=== PATIENT | female | born 1990 | race Native Hawaiian/Other Pacific Islander ===

== ENCOUNTER 2018-10-16 12:15 | Inpatient (IN) | payer BC ==
--- NOTE | 2018-10-16 13:54 | ED PDOC ---
HPI: Psych/Substance Abuse Time Seen by Provider: 10/16/18 12:28 Chief Complaint (Nursing): Psychiatric Evaluation Chief Complaint (Provider): Depression History Per: Patient History/Exam Limitations: no limitations Additional Complaint(s): 28yo female, with history of hypertension, anxiety, depression, (not on medicati ons), comes to ER for evaluation due to depression. patient states she has had depression for more than 4 years; she was previously seen in an urgent care, and was prescribed medications including xanax and zoloft which she took for 2 months and then stopped as she felt llike she did not need it anymore. Patient states within the past year, she has been increasingly depressed and over the past month has been taking xanax more frequently. Patient states she takes one xanax prior to bed daily. No complaints of suicidal or homicidal ideation, no hallucinations. Patient denies any medical complaints. Patient's friend pulled me aside and states the patient is downplaying her symptoms and has been "on a downward spiral" for the past year; states the patient had a breakdown at work, was crying at her desk infront of all her coworkers. She states the patient "is risking her job" and "has hit rock bottom." She does not feel the patient is suicidal but states the patient cries herself to sleep each night. Past Medical History Reviewed: Historical Data, Nursing Documentation, Vital Signs Vital Signs: Last Vital Signs Temp 98.7 F 10/16/18 12:18 Pulse 80 10/16/18 12:18 Resp 19 10/16/18 12:18 BP 156/95 H 10/16/18 12:18 Pulse Ox 98 10/16/18 12:18 - Medical History PMH: Depression, HTN - Surgical History Surgical History: No Surg Hx - Family History Family History: States: No Known Family Hx - Home Medications Home Medications: Ambulatory Orders Medication Instructions Recorded Alprazolam [Xanax] 0.5 mg PO DAILY PRN 10/16/18 Multivitamin [Multi-Vitamin Daily] 1 tab PO DAILY 10/16/18 - Allergies Allergies/Adverse Reactions: Allergies Allergy/AdvReac Type Severity Reaction Status Date / Time No Known Allergies Allergy Verified 10/16/18 12:18 Review of Systems ROS Statement: Except As Marked, All Systems Reviewed And Found Negative Psych: Positive for: Depression. Negative for: Suicidal ideation Physical Exam - Reviewed Nursing Documentation Reviewed: Yes Vital Signs Reviewed: Yes - Physical Exam Appears: Positive for: Non-toxic Head Exam: Positive for: ATRAUMATIC, NORMAL INSPECTION, NORMOCEPHALIC Skin: Positive for: Normal Color Eye Exam: Positive for: EOMI, PERRL Neck: Positive for: Supple Cardiovascular/Chest: Positive for: Regular Rate, Rhythm. Negative for: Tachycardia Respiratory: Positive for: Normal Breath Sounds. Negative for: Respiratory Distress Neurological/Psych: Positive for: Awake, Alert, Normal Tone, Oriented (x 3), Mood/Affect (calm and cooperative, good insight) - Laboratory Results Result Diagrams: 10/16/18 15:10 10/16/18 15:10 - ECG O2 Sat by Pulse Oximetry: 98 (RA) Pulse Ox Interpretation: Normal Medical Decision Making Medical Decision Makinyo female with complaints of depression Plan: -- Crisis evaluation 1427 Patient seen by crisis team, and per Dr. Ruffin, patient to be admitted due to depression. Labs ordered for medical clearance. 1631 UDip reviewed, patient with moderate blood, trace leukocytes, and no nitrates. Patient currently on her menstrual period; no complaints of dysuria, frequency, urgency or suprapubic pain. Labs reviewed, no clinically significant abnormalities noted. Patient medically cleared for psychiatric admission. Scribe Attestation: Documented by Rose Marie Trujillo acting as a scribe for DAKOTA Donald. Provider Scribe Attestation: All medical record entries made by the Scribe were at my direction and personally dictated by me. I have reviewed the chart and agree that the record accurately reflects my personal performance of the history, physical exam, medical decision making, and the department course for this patient. I have also personally directed, reviewed, and agree with the discharge instructions and disposition. Disposition - Clinical Impression Clinical Impression: Depression - Patient ED Disposition Is Patient to be Admitted: Yes Discussed With : Arely Ruffin Doctor Will See Patient In The: Hospital - Disposition Disposition: Transfer of Care Disposition Time: 15:52 Condition: FAIR
[2018-10-16 15:17] LABS: BASO # 0.1 K/uL (0.0-0.2); BASO % 0.9 % (0.0-2.0); EOS # 0.1 K/uL (0.0-0.7); EOS % 1.2 % (0.0-4.0); HEMOGLOBIN 15.4 g/dL (12.0-16.0); LYMPH # 2.3 K/uL (1.0-4.3); LYMPH % 23.7 % (20.0-40.0); MEAN CELL VOLUME 93.7 fl (81.0-99.0); MEAN CORPUSCULAR HEMOGLOBIN 31.2 pg (27.0-31.0); MEAN CORPUSCULAR HGB CONC 33.3 g/dL (33.0-37.0); MEAN PLATELET VOLUME 8.7 fl (7.2-11.7); MONO # 0.6 K/uL (0.0-0.8); MONO % 6.3 % (0.0-10.0); NEUT # 6.7 K/uL (1.8-7.0); NEUT % 67.9 % (50.0-75.0); RBC 4.94 Mil/uL (3.80-5.20); RED CELL DISTRIBUTION WIDTH 13.5 % (11.5-14.5); WHITE BLOOD COUNT 9.9 K/uL (4.8-10.8)
[2018-10-16 15:27] LABS: BLOOD UREA NITROGEN 10 mg/dl (7-17); GFR NON-AFRICAN AMERICAN > 60
[2018-10-16 15:37] LABS: BENZODIAZEPINES, UR NEGATIVE (NEGATIVE)
[2018-10-16 15:39] LABS: BARBITURATES, UR NEGATIVE (NEGATIVE); OPIATES, UR NEGATIVE (NEGATIVE); PHENCYCLIDINE, UR NEGATIVE (NEGATIVE)
[2018-10-16] MEDS ORDERED: DiphenhydrAMINE 50 mg/ml Inj IM PRN (18:24)
[2018-10-16] MEDS ORDERED: Alum-Mag Hydrox-Simethicone Susp (30 mL) PO PRN (18:24)
[2018-10-16] MEDS ORDERED: Magnesium Hydroxide Susp 30 ml UD PO PRN (18:24)
--- NOTE | 2018-10-16 18:54 | PCM.BM ---
<GracielaKhushboo - Last Filed: 10/16/18 18:49> Treatment Plan Problems - Problems identified on initial assessmt Anxiety Date Initiated: 10/16/18 Time Initiated: 18:49 Assessment reference: NA Status: Active Feelings of worthlessness Date Initiated: 10/16/18 Time Initiated: 18:50 Assessment reference: NA Status: Active Treatment assets and liabiliti Patient Assests: educated, physically healthy, good support system Patient Liabilities: relationship conflicts, other (depression) - Milieu Protocol Maintain good personal hygiene: daily Encourage regular showers, every shift Remind patient to perform daily oral care, every shift Assist patient to perform ADL's Conduct patient checks and document Observation sheet: Q15 minutes Maintain personal safety: every shift Educate patient to report safety concerns to staff, every shift Monitor environment for contraband/sharps Medication safety: Monitor for expected outcome, potential side effects: every shift, Assess barriers to learning: every shift, Assess readiness for medication education: every shift <Reagan Elena - Last Filed: 10/18/18 10:50> Family Contact Family involvement: Family/SO is involved Family contact: Patient declines to allow family contact at present Family contact name: Pt refused. Family contact comment: Pt reported she does not want her family called because she does not want them to worry. - Goals for Treatment Patient goals for treatment: Pt requested to leave the unit as her missing work is causing her more anxiety than before admission. Pt is agreeable to outpatient referrals for therapy and med management and is motivated to attend. Discharge/Continuing Care - Education Needs Education Needs: Patient Medication, Patient Diagnosis/Disease Process, Patient Coping Skills, Patient Community resources, Patient Aftercare Safety Plan - Discharge Discharge Criteria: Tolerates medication w/o severe side effects, Free of agitation, Normal sleep pattern, Reduction of target symptoms Discharge to:: Home - Treatment Team Participation Patient/Family/SO Statement: 10/18/18 10:50 Pt seen in treatment team on 10/18/18. Pt reported good sleep on the Trazodone, but felt a little groggy today and some fear that she would sleep through her alarms. Trazodone will be lowered to 25mg HS on 10/18/18. Pt reported decreased anxiety/depression and feeling overwhelmed. Pt reported feeling tremendous social support from her job, coworkers and friends. Pt denied SI/HI and AVT hallucinations. Discharged on 10/19 was discussed due to 48 hour notice and no criteria for [facility] screening. Appointments at [facility] discussed as well. Discussed with Family/SO: No Was Patient/Family/SO present at Treatment Team Meeting: Yes <Arely Ruffin - Last Filed: 10/18/18 13:43> - Diagnosis (1) Major depression Status: Acute Interventions: 10/18/18 13:42 start lexapro, CBT (2) Cannabis abuse Status: Acute Interventions: MOTIVATIONAL THERAPY 10/18/18 13:43
[2018-10-17 02:34] VITALS: O2SAT 98
--- NOTE | 2018-10-17 14:34 | PCM.PSYCH ---
Initial Psychiatric Evaluation - Initial Psychiatric Evaluation Legal Status: Capacity Chief Complaint (in patient's own words): I am so overwhelmed I could not function History of Present Illness and Precipitating Events: pt is 28ys old female with previous diagnosis of depression and anxiety, currently not in treatment brought to ER after expressing suicidal ideation pt has been increasingly overwhelmed due to her job, also has been feeling increasingly lonely, pt reported depressed mood , crying episodes,poor sleep with early insomnia, periods of hopelessness and helplessness with passive suicidal ideation feeling her life is worthless without active plan pt denied perceptual disturbances, denied homicidal ideation, reported using cannabis for sleep Current Medications: Active Medications Generic Name Dose Route Start Last Admin Trade Name Freq PRN Reason Stop Dose Admin Acetaminophen 650 mg 10/16/18 18:24 Tylenol 325mg Tab PO Q4 PRN Pain, moderate (4-7) Al Hydrox/Mg Hydrox/Simethicone 30 ml 10/16/18 18:24 Maalox Plus 30 Ml PO Q4 PRN Dyspepsia Diphenhydramine HCl 50 mg 10/16/18 18:24 Benadryl IM Q6 PRN Extrapyramidal S/S Unable PO Diphenhydramine HCl 50 mg 10/16/18 18:32 Benadryl PO Q6 PRN Extrapyramidol Symptoms Diphenhydramine HCl 50 mg 10/16/18 20:49 10/16/18 21:04 Benadryl PO 50 mg HS PRN Administration Sleep Escitalopram Oxalate 10 mg 10/18/18 09:00 Lexapro PO DAILY AMOS Haloperidol 5 mg 10/16/18 18:24 Haldol PO Q4 PRN Agitation Haloperidol Lactate 5 mg 10/16/18 18:24 Haldol IM Q4 PRN Agitation, Unable to Take PO Lorazepam 2 mg 10/16/18 18:24 Ativan IM Q4 PRN Anxiety/Agitation,Unable PO Lorazepam 2 mg 10/16/18 18:31 Ativan PO Q4 PRN Agitation Magnesium Hydroxide 30 ml 10/16/18 18:24 Milk Of Magnesia PO HS PRN Constipation Trazodone HCl 50 mg 10/17/18 22:00 Desyrel PO HS AMOS Past Psychiatric History - Past Psychiatric History Explanation of prior treatment: no hx of previous hospitalizations History of Abuse: denied History of ETOH/Drug Use: cannabis abuse History of Family Illness: mother hx of anxiety Pertinent Medical Hx (Current Medical&Sleep Prob, Allergies): Allergies Allergy/AdvReac Type Severity Reaction Status Date / Time No Known Allergies Allergy Verified 10/16/18 12:18 Alprazolam [Xanax] 0.5 mg PO DAILY PRN 10/16/18 Multivitamin [Multi-Vitamin Daily] 1 tab PO DAILY 10/16/18 Mental Status Examination - Personal Presentation Personal Presentation: Looks stated age - Affect Affect: Constricted, Depressed - Motor Activity Motor Activity: Psychomotor Retardation - Reliability in Providing Information Reliability in Providing Information: Good - Speech Speech: Relevant - Mood Mood: Depressed, Anxious - Formal Thought Process Formal Thought Process: Circumstantial - Obsessions/Compulsions Obsessions: No Compulsions: No - Cognitive Functions Orientation: Person, Place, Situation, Time Sensorium: Alert Judgement: Imparied, as evidence by: Lack of insight into illness - Risk Risk: Suicidal, Diminished functioning - Strength & Assets Inventory Strength & Assets Inventory: Education, Employment history - Limitations Additional comments: poo DSM 5 DX - DSM 5 DSM 5 Diagnosis: major depression generalized anxiety cannabis abuse - Recommended/Plan of Treatment Treatment Recommendations and Plan of Treatment: start lexapro 5mg / increase gradually CBT group and motivational therapy
--- NOTE | 2018-10-18 13:55 | PCM.PYCHPN ---
Psychiatric Progress Note - Psychiatric Progress Note Patient seen today, length of contact: PT EVALUATED DISCUSSED WITH TEAM CHART REVIEWED Patient Chief Complaint: I need to start therapy Problems Identified/Issues Discussed: pt on evaluation reported feeling less depressed and less anxious, reported improved sleep with trazodone, pt reported improvement with starting lexapro, no reported side effects, pt able to verbalize coping skills with stress, agrees to start therapy on discharge, denied any current thoughts of self harm, denied perceptual disturbances, compliant with treatment and attending groups Medical Problems: no hx of previous hospitalizations DSM 5 Symptoms Update: major depression recurrent cannabis abuse Medication Change: Yes (decrease trazodone ) Medical Record Reviewed: Yes Mental Status Examination - Cognitive Function Orientation: Person, Place, Situation, Time Attention: WNL Concentration: WNL Decription of patient's judgement and insights: partial insight fair judgment - Mood Mood: Depressed, Anxious - Affect Affect: Constricted, Depressed - Speech Speech: Appropriate - Formal Thought Process Formal Thought Process: Circumstantial Psychotic Thoughts and Behaviors: pt denied perceptual disturbances, non elicited - Suicidal Ideation Suicidal Ideation: No - Homicidal Ideation Homicidal Ideation: No Goal/Treatment Plan - Goal/Treatment Plan Need for Continued Stay: Severe depression anxiety, Discharge may exacerbated symptoms Progress Toward Problem(s) and Goals/Treatment Plan: lexapro 10mg daily trazodone 25 mg qhs CBT group and motivational therapy
[2018-10-18 16:37] VITALS: RESP 20; TEMP 97
[2018-10-19 10:25] VITALS: BP 144/105; PULSE 68
--- NOTE | 2018-10-19 10:42 | PCM.PYCHDC ---
Mental Status Examination - Mental Status Examination Orientation: Person, Place, Situation Memory: Intact Mood: Neutral Affect: Broad Speech: Appropriate Attention: WNL Concentration: WNL Association: WNL Fund of Knowledge: WNL Formal Thought Process: No Impairment Description of patient's judgement and insight: partial insight fair judgment Psychotic Thoughts and Behaviors: pt denied perceptual disturbances, non elicited Suicidal Ideation: No Current Homicidal Ideation?: No Discharge Summary - Discharge Note Reason for Hospitalization: pt is 28ys old female with previous diagnosis of depression and anxiety, currently not in treatment brought to ER after expressing suicidal ideation pt has been increasingly overwhelmed due to her job, also has been feeling increasingly lonely, pt reported depressed mood , crying episodes,poor sleep with early insomnia, periods of hopelessness and helplessness with passive suicidal ideation feeling her life is worthless without active plan pt denied perceptual disturbances, denied homicidal ideation, reported using cannabis for sleep Consultations:: List each consultation separately and include: 1. Reason for request. 2. Findings. 3. Follow-up Summary of Hospital Course include:: 1. Description of specific treatment plan utilized for patients during their course of treatmen. 2. Summarize the time- course for resolution of acute symptoms and/or regressed behaviors. 3. Describe issues identified and worked on during hospitalization. 4. Describe medication utilized. 5. Describe medical problems identified and treated. 6. Reassessment of suicide risk Summary of Hospital Course: pt on admission presented with depressed mood and affect and insomnia pt was placed on lexapro 10mg and trazodone 50mg CBT group and supportive therapy provided , pt was compliant with treatment , no reported side effects motivational therapy was provided in reference to cannabis use on discharge mental status was stable pt denied any current suicidal or homicidal ideation denied perceptual disturbances - Diagnosis (1) Major depression Current Visit: Yes Status: Acute (2) Cannabis abuse Current Visit: Yes Status: Acute - Final Diagnosis (DSM 5) Condition upon Discharge: FAIR DSM 5: major depression recurrent severe without psychotic features cannabis abuse Disposition: HOME/ ROUTINE Follow-up Treatment Plan: [facility] outpatient Prescriptions/Medication Reconciliation: Escitalopram [Lexapro] 10 mg PO DAILY 30 Days #30 tab traZODone [Desyrel] 25 mg PO HS 30 Days #30 tab - Antipsychotic Medications Pt discharged on 2 or more routine antipsychotic medications: No
== END 2018-10-19 11:00 | disposition home or self-care (01) | DRG 885 ==
LOC: H.ER 12:15 → SUPCPDRO 12:15 → H.ERHOLD 15:52 → H.PSYCH 17:24
PROVIDERS: ADMIT Psychiatry & Neurology Psychiatry; ATTEND Psychiatry & Neurology Psychiatry
PROC: HZ57ZZZ Individual Psychotherapy for Substance Abuse Treatment, Motivational Enhancement (ICD-10-PCS; principal; 2018-10-16)
PROC: GZHZZZZ Group Psychotherapy (ICD-10-PCS; 2018-10-16)
PROC: GZ58ZZZ Individual Psychotherapy, Cognitive-Behavioral (ICD-10-PCS; 2018-10-16)
DX: F33.2 Major depressive disorder, recurrent severe without psychotic features (principal); R45.851 Suicidal ideations; F12.10 Cannabis abuse, uncomplicated; F41.1 Generalized anxiety disorder; G47.00 Insomnia, unspecified; I10 Essential (primary) hypertension